=== PATIENT | female | born 1945 | race Caucasian/White ===

== ENCOUNTER → 2023-12-20 14:11 | Outpatient (REF) | payer BC, OTHER, SELFPAY | LOC: RAD 14:11 | PROVIDERS: ATTENDING PHYSICIAN Surgery Vascular Surgery; FAMILY PHYSICIAN Student in an Organized Health Care Education/Training Program | DX: I73.9 Peripheral vascular disease, unspecified (principal) | CPT/HCPCS: 93922; 93925 ==